=== PATIENT | female | born 1990 | race American Indian/Alaskan Native ===

== ENCOUNTER 2017-12-03 06:03 | Inpatient (IN) | payer MEDICAID ==
[2017-12-03] MEDS ORDERED: Sodium Chloride 0.9% 20 ML IV ONE (07:17)
[2017-12-03] MEDS ORDERED: Bacitracin Ointment 30 GM TUBE ONE (07:18)
[2017-12-03] MEDS ORDERED: Vasopressin 20 Units/ml Inj ONE ×2 (07:18→08:34)
[2017-12-03] MEDS ORDERED: cefOXitin IV 1 gm in Dextrose 2 GM/100 ML BAG IVPB ONE (07:19)
[2017-12-03] MEDS ORDERED: Lactated Ringer's 1,000 ML IV ONE ×3 (07:45→11:45)
[2017-12-03] MEDS ORDERED: Midazolam 2 MG/2 ML VIAL ONE (07:52)
[2017-12-03] MEDS ORDERED: Propofol 10 mg/ml Inj (20 ML) ONE (07:52)
[2017-12-03] MEDS ORDERED: Rocuronium 10 mg/ml (5 ml) ONE (07:55)
[2017-12-03] MEDS ORDERED: Sodium Chloride 0.9% 40 ML IV ONE (08:35)
[2017-12-03] MEDS ORDERED: Neostigmine Methylsulfate 3mg/3ml Syringe IV ONE (09:15)
[2017-12-03] MEDS ORDERED: HYDROmorphone 0.5 mg/0.5 ml ISec IVP PRN (09:28)
[2017-12-03] MEDS ORDERED: Naloxone 0.4 mg/ml Inj (Adult) IVP PRN (09:29)
[2017-12-03] MEDS ORDERED: Morphine Monoject Barrel PCA 1mg/ml IV PRN (09:29)
[2017-12-03] MEDS ORDERED: Morphine 4 MG/ML VIAL ONE (09:38)
[2017-12-03] MEDS ORDERED: cefOXitin IV 2 gm in Dextrose 2 GM/50 ML BAG IVPB SCH ×2 (10:00→18:00)
[2017-12-03] MEDS ORDERED: Lactated Ringer's 1,000 ML IV SCH (10:00)
--- NOTE | 2017-12-03 16:02 | OP ---
PROCEDURE DATE: 12/03/2017 PREOPERATIVE DIAGNOSES: Fibroid uterus, menorrhagia, anemia, and cervical polyp. POSTOPERATIVE DIAGNOSES: Fibroid uterus, menorrhagia, anemia, and cervical polyp. PROCEDURE: Exploratory laparotomy and myomectomy. FINDINGS: An 18-week size multi-fibroid uterus and total of 14 intramural myomas were removed and also a 2 cm endocervical polyp. SURGEON: Guilherme Quiñones MD. INDUSTRIAL ENGINEERING TECHNOLOGIST: Be Pate MD. ESTIMATED BLOOD LOSS: 300 mL. COMPLICATIONS: Nil. DESCRIPTION OF PROCEDURE: After the risks, benefits and alternatives of the planned procedures including but not limited to infection, hemorrhage, deep vein thrombosis, atelectasis, pneumonia, pulmonary embolism, damage to the bladder, damage to the ureter, renal insufficiency, renal failure, wound infection, wound dehiscence, incisional hernia, keloid formation, damage to the large and small intestine, damage to the inferior vena cava and aorta requiring extensive repair, anesthesia complications, electrolyte imbalance, possibility of , fluid overload, cerebral edema, air embolism, recurrence and persistence of fibroids have been explained to the patient and all her questions answered, informed consent was obtained. The patient was taken to the operating room in a stable condition. Under suitable level of general analgesia, she was prepped and draped in a sterile fashion after having been placed in a dorsal lithotomy position. A weighted speculum was inserted into the vagina. The anterior lip of the cervix was grasped using a single-tooth tenaculum. A 2 cm endometrial polyp was then resected using cautery. The excision site was fulgurated with good hemostasis. Monsel solution was applied to the excision site with good hemostasis. The patient was then repositioned into a supine position. The abdomen was entered through a Pfannenstiel-type incision and carried through the subcutaneous tissues to the fascia. Fascia was opened transversely and dissected off the rectus abdominis musculature. The rectus abdominis musculature was then in the midline to remove the parietal peritoneum, which was entered sharply and incised superiorly and inferiorly. An O'Rajiv-O'Og retractor was inserted into the abdomen and bowel was packed away from the pelvic cavity. Anterior fundal and posterior wall of the uterus were then infiltrated using Pitressin. A longitudinal incision was made over the posterior wall of the uterus and a total of 4 intramural myomas were enucleated without entry into the endometrial cavity. Hemostasis was good. An anterior fundal incision was then made, through which a total of 10 intramural myomas were enucleated without entry into the endometrial cavity. The excision sites on both anterior and posterior garcia of the uterus were closed in 4 layers with the first three layers being interrupted layers using 0 Vicryl sutures in an interrupted fashion and a superficial myometrium and serosa being closed using 0 Vicryl suture in a baseball stitch fashion. Hemostasis was good. Both the fallopian tubes on the right and left side and the ovaries were noted to be normal. At the end of the procedure, peritoneal cavity was irrigated using copious amounts of saline. The saline was evacuated. The abdomen was then closed in layers with 0 chromic to the parietal peritoneum, rectus muscles were reapproximated using interrupted sutures of 0 chromic. Fascia was reapproximated using 2 separate running sutures of 0 Vicryl to meet in the midline. Subcutaneous tissues were reapproximated using interrupted sutures of 0 plain, and the initial skin incision was reapproximated using 4-0 Vicryl in a subcuticular fashion. Estimated blood loss for the procedure was 300 mL. Pad, needle, and instrument counts were correct x2. There were no complications. Guilherme Quiñones MD
[2017-12-03] MEDS ORDERED: cefOXitin IV 1 gm in Dextrose 1 GM/50 ML BAG IVPB SCH (18:00)
[2017-12-03] MEDS ORDERED: cefOXitin 2 GM in Sodium Chloride 0.9% 100 ML IVPB SCH (18:00)
[2017-12-03] MEDS ORDERED: Oxycodone/Acetaminophen 5/325 mg Tab PO PRN ×2 (19:48)
[2017-12-03] MEDS ORDERED: Simethicone 80 mg Chewtab PO SCH (22:00)
[2017-12-04] MEDS: cefOXitin 2 GM in Sodium Chloride 0.9% 100 ML IV SCH ×3 (02:05→18:45)
[2017-12-04 08:27] LABS: BASO % 0.2 % (0.0-2.0); HEMOGLOBIN 9.2 g/dL (11.0-16.0); LYMPH # 1.8 K/uL (1.0-4.3); LYMPH % 8.3 % (20.0-40.0); MEAN CORPUSCULAR HEMOGLOBIN 21.2 pg (27.0-31.0); MEAN PLATELET VOLUME 7.5 fL (7.2-11.7); MONO # 1.7 K/uL (0.0-0.8); NEUT # 17.7 K/uL (1.8-7.0); NEUT % 83.5 % (50.0-75.0); PLATELET COUNT 422 K/uL (130-400); RBC 4.36 Mil/uL (3.80-5.20); RED CELL DISTRIBUTION WIDTH 20.5 % (11.5-14.5)
[2017-12-04 08:40] LABS: MEAN CELL VOLUME 66.3 fL (81.0-99.0); WHITE BLOOD COUNT 21.2 K/uL (4.8-10.8)
[2017-12-04] MEDS ORDERED: Simethicone 80 mg Chewtab PO ONE (10:00)
[2017-12-04 10:49] LABS: ANISOCYTOSIS MODERATE; BANDS 5 % (0-2); LYMPHOCYTE 13 % (20-40); MONOCYTE 8 % (0-10); NEUTROPHIL 74 % (50-75); PLATELET ESTIMATE SLIGHTLY INCREASED (NORMAL); TOTAL CELLS COUNTED 100
[2017-12-04 10:50] LABS: HYPOCHROMIC SLIGHT; MICROCYTOSIS MODERATE; OVALOCYTES SLIGHT; POIKILOCYTOSIS SLIGHT; TOXIC GRANULATION PRESENT
[2017-12-04 10:51] LABS: LARGE PLATELETS PRESENT
[2017-12-04] MEDS: Enoxaparin 40 mg Syringe SC SCH (11:20)
[2017-12-04] MEDS ORDERED: Simethicone 80 mg Chewtab PO SCH (12:00)
[2017-12-04] MEDS: Simethicone 80 mg Chewtab PO SCH ×3 (14:41→21:41)
[2017-12-04] MEDS ORDERED: Bisacodyl 5mg EC Tab PO ONE (19:50)
[2017-12-05] MEDS: cefOXitin 2 GM in Sodium Chloride 0.9% 100 ML IV SCH ×2 (01:28→10:25)
--- NOTE | 2017-12-05 06:58 | PN ---
DATE: SUBJECTIVE: The patient has no complaints. She is passing flatus. OBJECTIVE: VITAL SIGNS: Stable. She is afebrile. ABDOMEN: Incision is clean and intact. Bowel sounds are normal. EXTREMITIES: Nontender with no evidence of DVT. CHEST: Clear. ASSESSMENT: The patient is status post myomectomy, polypectomy day 1. PLAN: Is to ambulate the patient and advance diet. Guilherme Quiñones MD
[2017-12-05 08:05] VITALS: BP 99/59; PULSE 94; RESP 18; TEMP 99.3; O2SAT 100
[2017-12-05] MEDS: Simethicone 80 mg Chewtab PO SCH (09:55)
[2017-12-05] MEDS: Enoxaparin 40 mg Syringe SC SCH (09:56)
== END 2017-12-05 10:26 | disposition home or self-care (01) | DRG 359 ==
LOC: C.9S 06:03 → C.4M 11:18
PROVIDERS: ADMIT Obstetrics & Gynecology Reproductive Endocrinology; ATTEND Obstetrics & Gynecology Reproductive Endocrinology
PROC: 0UBC7ZZ Excision of Cervix, Via Natural or Artificial Opening (ICD-10-PCS; 2017-12-03)
PROC: 0UB90ZZ Excision of Uterus, Open Approach (ICD-10-PCS; principal; 2017-12-03 07:30)
DX: D25.1 Intramural leiomyoma of uterus (principal); N84.1 Polyp of cervix uteri; N92.0 Excessive and frequent menstruation with regular cycle; D64.9 Anemia, unspecified